=== PATIENT | male | born 1960 | race Two or more races ===

== ENCOUNTER 2023-08-07 19:03 | Emergency (ER) | payer BC ==
[~2023-08-07] VITALS: Ht 165.1 cm; Wt 86.2 kg
[2023-08-07] MEDS ORDERED: COZAAR25 MG PO (19:48)
[2023-08-07] MEDS ORDERED: LAMISIL125 ML TP (19:48)
[2023-08-07] MEDS ORDERED: PRILOSEC OTC20 MG (19:49)
[2023-08-07] MEDS ORDERED: TRAZODONE HCL5 GM (19:49)
[2023-08-07 22:22] LABS: HEMOGLOBIN 18.8 g/dL (13-16.00); MEAN CELL VOLUME 89.8 fL (80.0-100.00); MEAN CORPUSCULAR HEMOGLOBIN 31.8 pg (27.00-32.0); MEAN CORPUSCULAR HGB CONC 35.4 g/dl (32.0-36.0); PLATELET COUNT 116 K/uL (150-450); RED BLOOD COUNT 5.91 M/uL (4.00-6.00); RED CELL DISTRIBUTION WIDTH 13.7 % (11.5-14.5)
[2023-08-07 22:32] LABS: CALCIUM 9.5 mg/dL (8.5-10.1); CREATININE SERUM 0.89 mg/dL (0.70-1.30); GFR 86.9; POTASSIUM 3.91 mEq/L (3.5-5.1)
[2023-08-07] MEDS ORDERED: OSEL75CA PO (23:51)
[2023-08-07] MEDS ORDERED: TUSSIN100 MG/51 PO (23:51)
== END 2023-08-08 00:21 | disposition home or self-care (01) ==
LOC: ER 19:03
PROVIDERS: General Practice
DX: J09.X2 Influenza due to identified novel influenza A virus with other respiratory manifestations (principal); B34.8 Other viral infections of unspecified site